=== PATIENT | male | born 1945 | race Caucasian/White ===

== ENCOUNTER 2019-01-17 06:33 | Day surgery (SDC) | payer OTHER | END 2019-01-17 10:25 | disposition home or self-care (01) | LOC: AMB-ENDOS 06:33 → EDBD 08:30 → AMB-ENDOS 10:25 | DX: C20 Malignant neoplasm of rectum (principal) ==

== ENCOUNTER 2019-06-27 07:30 | Day surgery (SDC) | payer OTHER | END 2019-06-27 11:30 | disposition home or self-care (01) | LOC: AMB-ENDOS 07:30 → EDBD 12:00 | DX: C20 Malignant neoplasm of rectum (principal); K57.30 Diverticulosis of large intestine without perforation or abscess without bleeding ==

== ENCOUNTER 2020-01-09 06:57 | Day surgery (SDC) | payer OTHER | END 2020-01-09 09:55 | disposition home or self-care (01) | LOC: AMB-ENDOS 06:57 | PROVIDERS: ATTEND Surgery | DX: K62.89 Other specified diseases of anus and rectum (principal); K57.30 Diverticulosis of large intestine without perforation or abscess without bleeding ==

== ENCOUNTER 2020-01-16 16:06 | Inpatient (IN) | payer OTHER ==
[~2020-01-16] VITALS: Ht 157.5 cm; Wt 59.0 kg
[2020-02-09] MEDS ORDERED: TAMS0.4C PO (14:38)
[2020-02-09] MEDS ORDERED: [UNRECOGNIZED DRUG - OTHER] PO (14:40)
[2020-02-09] MEDS ORDERED: ELIQUIS5 MG PO (14:41)
[2020-02-09] MEDS ORDERED: SYNTHROID50 MCG PO (14:41)
[2020-02-09] MEDS ORDERED: LIPITOR20 MG PO (14:41)
[2020-02-09] MEDS ORDERED: PROSCAR5 MG PO (14:41)
[2020-02-12] MEDS ORDERED: SINEMET 25-1001 EACH PO (13:13)
[2020-02-25] MEDS ORDERED: ULTRACET PO (12:20)
[2020-02-25] MEDS ORDERED: TAMS0.4C PO (12:20)
[2020-02-25] MEDS ORDERED: INTESTINEX680 M1 PO (12:21)
[2020-02-25] MEDS ORDERED: AMOX1TAB5 PO (12:21)
== END 2020-02-25 15:31 | disposition home or self-care (01) | DRG 329 ==
LOC: O/R 02-12 08:05 → SURH 02-12 08:05 → MEDJ 02-15 12:15 → SURH 02-19 13:53
PROVIDERS: ADMIT Surgery; ATTEND Surgery
PROC: 07TB4ZZ Resection of Mesenteric Lymphatic, Percutaneous Endoscopic Approach (ICD-10-PCS; 2020-02-12)
PROC: 0DTP4ZZ Resection of Rectum, Percutaneous Endoscopic Approach (ICD-10-PCS; 2020-02-12)
PROC: 0DTQ4ZZ Resection of Anus, Percutaneous Endoscopic Approach (ICD-10-PCS; 2020-02-12)
PROC: 0D1E4Z4 Bypass Large Intestine to Cutaneous, Percutaneous Endoscopic Approach (ICD-10-PCS; 2020-02-12)
PROC: 0DTN4ZZ Resection of Sigmoid Colon, Percutaneous Endoscopic Approach (ICD-10-PCS; principal; 2020-02-12 14:00)
PROC: 4A033R1 Measurement of Arterial Saturation, Peripheral, Percutaneous Approach (ICD-10-PCS; 2020-02-14)
PROC: 3E0F7GC Introduction of Other Therapeutic Substance into Respiratory Tract, Via Natural or Artificial Opening (ICD-10-PCS; 2020-02-15)
PROC: B246ZZZ Ultrasonography of Right and Left Heart (ICD-10-PCS; 2020-02-15)
PROC: 05HB33Z Insertion of Infusion Device into Right Basilic Vein, Percutaneous Approach (ICD-10-PCS; 2020-02-16)
PROC: B54MZZZ Ultrasonography of Right Upper Extremity Veins (ICD-10-PCS; 2020-02-22)
DX: C20 Malignant neoplasm of rectum (principal); J69.8 Pneumonitis due to inhalation of other solids and liquids; T81.44XA Sepsis following a procedure, initial encounter; J95.89 Other postprocedural complications and disorders of respiratory system, not elsewhere classified; I27.0 Primary pulmonary hypertension; Z20.828 Contact with and (suspected) exposure to other viral communicable diseases; R59.0 Localized enlarged lymph nodes; R09.02 Hypoxemia; I34.0 Nonrheumatic mitral (valve) insufficiency

== ENCOUNTER 2021-05-27 06:00 | Day surgery (SDC) | payer OTHER ==
[~2021-05-27 06:00] MED LIST: AMOX1TAB5 PO; ELIQUIS5 MG PO; INTESTINEX680 M1 PO; LIPITOR20 MG PO; PROSCAR5 MG PO; SINEMET 25-1001 EACH PO; SYNTHROID50 MCG PO; TAMS0.4C PO; ULTRACET PO; [UNRECOGNIZED DRUG - OTHER] PO
== END 2021-05-27 10:55 | disposition home or self-care (01) ==
LOC: AMB-ENDOS 06:00 → CIR.AMB 13:15
PROVIDERS: ATTEND Surgery
DX: K62.89 Other specified diseases of anus and rectum (principal); Z20.822 Contact with and (suspected) exposure to COVID-19